=== PATIENT | female | born 1985 | race African-American/Black ===

== ENCOUNTER 2019-09-28 11:36 | Emergency (ER) | payer OTHER ==
[2019-09-28 11:55] VITALS: BMI 36.0
[2019-09-28] MEDS ORDERED: SODIUM CHLORIDE 1,000 ML IV STA (12:16)
[2019-09-28] MEDS ORDERED: ONDANSETRON 4 MG/2 ML VIAL IVPUSH ONE (12:16)
[2019-09-28] MEDS ORDERED: KETOROLAC TROMETHAMINE 30 MG/1 ML VIAL IVPUSH ONE (12:17)
[2019-09-28 12:29] LABS: BASO % 0.5 % (0-2.0); EOS % 0.9 % (0-4.5); HEMATOCRIT 40.5 % (32.4-45.2); HEMOGLOBIN 13.5 GM/dL (10.7-15.3); LYMPH % 35.6 % (8-40); MCH 31.8 pg (25.7-33.7); MCHC 33.4 g/dl (32.0-36.0); MEAN CELL VOLUME 95.4 fl (80-96); MEAN PLT VOLUME 7.9 fl (7.5-11.1); MONO % 7.4 % (3.8-10.2); NEUT % 55.6 % (42.8-82.8); PLATELET COUNT 308 K/MM3 (134-434); RBC 4.24 M/mm3 (3.60-5.2); RDW 15.9 % (11.6-15.6); WHITE BLOOD COUNT 4.8 K/mm3 (4.0-10.0)
[2019-09-28] MEDS ORDERED: ONDANSETRON 4 MG/2 ML VIAL ONE (12:31)
[2019-09-28] MEDS ORDERED: KETOROLAC TROMETHAMINE 30 MG/1 ML VIAL ONE (12:31)
[2019-09-28] MEDS ORDERED: PANTOPRAZOLE SODIUM 40 MG in SODIUM CHLORIDE 100 ML IVPB ONE (12:36)
[2019-09-28] MEDS ORDERED: PANTOPRAZOLE SODIUM 40 MG/100 ML BAG IVPB ONE (12:48)
--- NOTE | 2019-09-28 13:20 | PDOC ---
History of Present Illness - General Chief Complaint: Pain Stated Complaint: ABD PAIN/THROWING UP Time Seen by Provider: 09/28/19 12:09 History Source: Patient Exam Limitations: No Limitations - History of Present Illness Travel History: No Initial Comments: 09/28/19 13:00 33-year-old female presents the ED with complaints of upper abdominal pain along with nausea vomiting diarrhea. Patient states chills yesterday. Patient states history of gallstones and has no urinary complaints. Patient denies bloody stool or emesis patient denies recent travel or recent illness. Patient denies irregular menses Timing/Duration: reports: constant Quality: reports: moderate, aching, cramping Abdominal Pain Onset Location: reports: epigastric Pain Radiation: reports: no radiation Activities at Onset: reports: none Aggravating Factors: improves with: None Alleviating Factors: improves with: None Past History - Travel Traveled outside of the country in the last 30 days: No Close contact w/someone who was outside of country & ill: No - Past Medical History Allergies/Adverse Reactions: Allergies Allergy/AdvReac Type Severity Reaction Status Date / Time Penicillins Allergy Verified 09/28/19 11:52 Home Medications: Ambulatory Orders NK [No Known Home Medication] 09/28/19 COPD: No - Psycho Social/Smoking Cessation Hx Smoking History: Current some day smoker Have you smoked in the past 12 months: Yes Number of Cigarettes Smoked Daily: 3 Information on smoking cessation initiated: Yes Hx Alcohol Use: No Drug/Substance Use Hx: No Substance Use Type: None Patient Lives Alone: No Lives with/in: spouse/SO Abd/GI Specific PMHX - Complaint Specific PMHX Gall Bladder Disease: Yes Review of Systems - Review of Systems Able to Perform ROS?: Yes Constitutional: Yes: Loss of Appetite HEENTM: No: Symptoms Reported Respiratory: No: Symptoms reported Cardiac (ROS): No: Symptoms Reported ABD/GI: Yes: Diarrhea, Nausea, Poor Appetite, Poor Fluid Intake, Vomiting, Indigestion : No: Symptoms Reported Musculoskeletal: No: Symptoms Reported Integumentary: No: Symptoms Reported Neurological: No: Symptoms reported Endocrine: No: Symptoms Reported Hematologic/Lymphatic: No: Symptoms Reported *Physical Exam - Vital Signs Last Vital Signs Temp Pulse Resp BP Pulse Ox 98.3 F 71 16 136/84 99 09/28/19 11:53 09/28/19 11:53 09/28/19 11:53 09/28/19 11:53 09/28/19 11:53 - Physical Exam General Appearance: Yes: Nourished, Appropriately Dressed. No: Apparent Distress HEENT: positive: Pharynx Normal (dry). negative: Pale Conjunctivae Neck: positive: Normal Thyroid Respiratory/Chest: positive: Lungs Clear, Normal Breath Sounds. negative: Respiratory Distress, Accessory Muscle Use Cardiovascular: positive: Regular Rhythm, Regular Rate. negative: Murmur Gastrointestinal/Abdominal: positive: Normal Bowel Sounds, Soft, Tenderness ( Epigastric right upper quadrant And right flank region). negative: Distended, Guarding Musculoskeletal: negative: CVA Tenderness Extremity: positive: Normal Inspection Integumentary: positive: Normal Color, Warm, Moist Neurologic: positive: Motor Strength 5/5 (Ambulatory ) ED Treatment Course - LABORATORY CBC & Chemistry Diagram: 09/28/19 12:18 09/28/19 12:18 - ADDITIONAL ORDERS Additional order review: Laboratory Results 09/28/19 12:18 Lipase 130 09/28/19 12:18 RBC 4.24 MCV 95.4 MCHC 33.4 RDW 15.9 H MPV 7.9 Neutrophils % 55.6 Lymphocytes % 35.6 Monocytes % 7.4 Eosinophils % 0.9 Basophils % 0.5 - Medications Given in the ED: ED Medications Discontinued Medications Generic Name Dose Route Start Last Admin Trade Name Freq PRN Reason Stop Dose Admin Pantoprazole Sodium 40 mg/ 100 mls @ 200 mls/hr 09/28/19 12:36 09/28/19 12:56 Sodium Chloride IVPB 09/28/19 13:05 200 mls/hr ONCE ONE Administration Ketorolac Tromethamine 30 mg 09/28/19 12:17 09/28/19 12:46 Toradol Injection - IVPUSH 09/28/19 12:18 30 mg ONCE ONE Administration Ondansetron HCl 4 mg 09/28/19 12:16 09/28/19 12:46 Zofran Injection IVPUSH 09/28/19 12:17 4 mg ONCE ONE Administration Medical Decision Making - Medical Decision Making 09/28/19 13:21 Chief complaint: Upper abdominal pain associated nausea vomiting since yesterday no other complaints patient with a history of gallstones states similar symptoms exam: Patient with epigastric and right upper quadrant tenderness negative Rivera sign negative CVA tenderness plan: labs, urine, fluids, antiemetics, Toradol, Protonix 09/28/19 13:24 Laboratory Tests 09/28/19 09/28/19 09/28/19 12:18 12:18 12:18 WBC 4.8 Hgb 13.5 Hct 40.5 Neutrophils % 55.6 Sodium 139 Potassium 4.6 Chloride 107 Carbon Dioxide 28 Anion Gap 4 L BUN 11.9 Creatinine 0.7 Est GFR (CKD-EPI)AfAm 131.94 Random Glucose 78 Calcium 8.6 Total Bilirubin 0.2 AST 46 H ALT 45 Alkaline Phosphatase 84 Total Protein 7.8 Albumin 3.7 Lipase 130 09/28/19 14:30 Patient states continues with pain. Patient states currently not menstruating. Patient did have right flank pain on exam. Patient will be ordered for spiral CT 09/28/19 16:48 CT shows a faintly visualized punctate nonobstructing left renal stone. Minimal fullness of the left ureter relative to the right without evidence of obstructing stone. There is no evidence of small bowel obstruction left ovarian cyst measuring 2 cm diverticulitis seen in the splenic flexure as well as the sigmoid colon without CT evidence of acute diverticulitis. Otherwise no CT evidence of acute process is seen in the abdomen or pelvis 09/28/19 16:49 Laboratory Tests 09/28/19 09/28/19 09/28/19 12:18 12:18 12:35 WBC 4.8 Hgb 13.5 Hct 40.5 RDW 15.9 H Sodium 139 Potassium 4.6 Chloride 107 Carbon Dioxide 28 Anion Gap 4 L BUN 11.9 Urine Protein 1+ H Urine Glucose (UA) Negative Urine Blood 3+ H Ur Leukocyte Esterase Negative Urine WBC (Auto) 6 Urine RBC (Auto) 3 Will send u cx Patient states feeling better 09/28/19 16:57 Patient will be discharged home with Protonix and will be notified if urine culture comes back positive for bacteria. 09/28/19 16:59 Discharge - Discharge Information Problems reviewed: Yes Clinical Impression/Diagnosis: Epigastric pain Condition: Improved Disposition: HOME - Follow up/Referral Referrals: Chani Matos MD [Primary Care Provider] - - Patient Discharge Instructions Patient Printed Discharge Instructions: DI for Epigastric Pain Additional Instructions: At this time your urine showed some bacteria but will not treat until the urine culture has resulted. I have prescribed Protonix for epigastric discomfort and recommend changing your diet avoiding spicy greasy and fatty foods - Post Discharge Activity
[2019-09-28 13:23] LABS: ALBUMIN 3.7 g/dl (3.4-5.0); BILIRUBIN,TOTAL 0.2 mg/dL (0.2-1); BLOOD UREA NITROGEN 11.9 mg/dL (7-18); CALCIUM 8.6 mg/dL (8.5-10.1); CREATININE 0.7 mg/dL (0.55-1.3); POTASSIUM 4.6 mmol/L (3.5-5.1); TOT PROT 7.8 g/dl (6.4-8.2)
[2019-09-28 13:31] LABS: EPI CELLS 5.6 /HPF (0-5/HPF); HYALINE CASTS 1 /lpf (0-8); PH,URINE 5.5 (5.0-8.0); URINE APPEARANCE CLOUDY; URINE BILIRUBIN NEGATIVE (NEGATIVE); URINE COLOR YELLOW; URINE GLUCOSE (UA) NEGATIVE (NEGATIVE); URINE KETONE NEGATIVE (NEGATIVE); URINE LEUK ESTERASE NEGATIVE (NEGATIVE); URINE NITRITE NEGATIVE (NEGATIVE); URINE PROTEIN 1+ (NEGATIVE); URINE RBC 3 /hpf (0-4); URINE UROBILINOGEN 0.2 mg/dL (0.2-1.0); URINE WBC 6 /hpf (0-5)
[2019-09-28] MEDS ORDERED: morphine CARPU-JECT 2 MG/1 ML DISP.SYRIN IVPUSH ONE (14:29)
[2019-09-28] MEDS ORDERED: morphine SULFATE 4 MG/ML VIAL ONE (14:33)
[2019-09-28 17:15] VITALS: BP 126/78; PULSE 88; TEMP 98.5
== END 2019-09-28 17:15 | disposition home or self-care (01) ==
LOC: JER 11:36
PROC: 3E033GC Introduction of Other Therapeutic Substance into Peripheral Vein, Percutaneous Approach (ICD-10-PCS; principal; 2019-09-28)
PROC: 3E033NZ Introduction of Analgesics, Hypnotics, Sedatives into Peripheral Vein, Percutaneous Approach (ICD-10-PCS; 2019-09-28)
PROC: 3E033GC Introduction of Other Therapeutic Substance into Peripheral Vein, Percutaneous Approach (ICD-10-PCS; 2019-09-28)
PROC: 3E0333Z Introduction of Anti-inflammatory into Peripheral Vein, Percutaneous Approach (ICD-10-PCS; 2019-09-28)
DX: R10.13 Epigastric pain (principal); N83.202 Unspecified ovarian cyst, left side; K57.90 Diverticulosis of intestine, part unspecified, without perforation or abscess without bleeding; F17.210 Nicotine dependence, cigarettes, uncomplicated; Z88.0 Allergy status to penicillin
CPT/HCPCS: 36415; 74176-TC; 80053; 81003; 83690; 84703; 85025; 87086; 96365; 96375; 99283-25; J7030